=== PATIENT | female | born 1995 | race Caucasian/White ===

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

== ENCOUNTER 2017-03-26 22:23 | Emergency (ER) | payer MEDICAID ==
[~2017-03-26] VITALS: Ht 165.1 cm; Wt 70.3 kg
[2017-03-26 22:37] VITALS: BP 118/58
--- NOTE | 2017-03-26 22:49 | NUR ---
PT TAKEN TO [facility] DAWN
--- NOTE | 2017-03-26 22:56 | NUR ---
PT RETURN FROM XRAY TO LOBBY
--- NOTE | 2017-03-26 23:07 | NUR ---
Rachel cage in [facility] - 03/26/17 at 2307 by MAGGIE PT RETURN FROM XRAY TO LOBBY
--- NOTE | 2017-03-26 23:15 | NUR ---
PT BIB SELF C/O COUGH FOR 10 DAYS, HEADACHE , LOWER BACK PAIN , NAUSEATED. PT DENIES ANY TRAUMA. PT DENIES N/V/D; SKIN IS INTACT, PINK/WARM/DRY; AAOX4, PERRL, WITH EVEN AND STEADY GAIT; LUNGS CLEAR BL, BREATHING UNLABORED; HR EVEN AND REGULAR, BL PERIPHERAL PULSES PRESENT; BS ACTIVE X4, NO TENDERNESS TO PALPATION. PT DENIES ANY FEVER, SOB, AT THIS TIME; PT STATES 5/10 PAIN AT THIS TIME; VSS; PATIENT POSITIONED FOR COMFORT; HOB ELEVATED; BEDRAILS UP X2; BED DOWN.
--- NOTE | 2017-03-26 23:23 | NUR ---
PT TAKEN TO [facility]
--- NOTE | 2017-03-26 23:37 | NUR ---
Dr. Saldaña evaluating patient
[2017-03-26] MEDS ORDERED: ALBUTEROL SULFATE/IPRATROPIU 3 ML SOL IH ONE (23:40)
--- NOTE | 2017-03-26 23:51 | NUR ---
Respiratory Therapist at bedside for respiratory intervention.
[2017-03-27 00:51] VITALS: BP 108/51
--- NOTE | 2017-03-27 00:52 | NUR ---
Patient discharged with v/s stable. Written and verbal after care instructions given and explained. Patient alert, oriented and verbalized understanding of instructions. Ambulatory with steady gait. All questions addressed prior to discharge. ID band removed. Patient advised to follow up with PMD. Rx of DEXTROMETHORPHAN/PROMETHAZINE 15MG-6.25,AMOXICILLIN 500MG TID AM given. Patient educated on indication of medication including possible reaction and side effects. Opportunity to ask questions provided and answered.
== END 2017-03-27 00:52 | disposition home or self-care (01) ==
LOC: MED 22:23
CPT/HCPCS: 71010; 81002; 81025; 94640; 99283; J7620

== ENCOUNTER 2019-10-23 05:37 | Emergency (ER) | payer MEDICAID ==
[~2019-10-23] VITALS: Ht 165.1 cm; Wt 68.0 kg
[2019-10-23 05:43] VITALS: BP 118/67
--- NOTE | 2019-10-23 05:43 | NUR ---
PT AMBULATED TO BED 9 WITH FAMILY MEMBER
--- NOTE | 2019-10-23 05:43 | NUR ---
24 Y/O BIB MOTHER C/O LOWER BACK PAIN X1 DAY. PAIN IS AN 8/10 ACUTE, SHARP PAIN; NONRADIATING. +NAUSEA BUT DENIES VOMITING AND DIARRHEA. BREATHING UNLABORED AND SYMMETRICAL 96% ON RA. GI:BOWEL SOUNDS HEARD THROUGHOUT. PAIN NOTED UPON PALPATING LOWER BACK; FACIAL GRIMACING NOTED. PATIENT STATES THAT SHE USED A CANNABIS RUB FOR THE PAIN WITHOUT ANY RELIEF. PT. IS AMBULATORY WITH ASSISTANCE, " I CAN'T BALANCE MY RIGHT FOOT AND SOMETIMES HAVE TROUBLE WALKING. ERMD MADE AWARE OF STATUS. SIDE RAILSX1. VSS. WILL CONTINUE TO MONITOR. PMH:ASTHMA RX:ALBUTEROL NKDA
--- NOTE | 2019-10-23 05:48 | NUR ---
ERMD AT BEDSIDE EVALUATING PATIENT.
[2019-10-23] MEDS ORDERED: KETOROLAC 60 MG/2 ML VIAL IM ONE (05:50)
== END 2019-10-23 07:20 | disposition home or self-care (01) ==
LOC: MED 05:37
DX: S33.5XXA Sprain of ligaments of lumbar spine, initial encounter (principal); J45.909 Unspecified asthma, uncomplicated; X50.0XXA Overexertion from strenuous movement or load, initial encounter; Y93.89 Activity, other specified; Y92.89 Other specified places as the place of occurrence of the external cause; Y99.8 Other external cause status
CPT/HCPCS: 96372; 99283; J1885